=== PATIENT | female | born 1955 ===

== ENCOUNTER 2021-08-19 13:00 | Inpatient (IN) | payer OTHER ==
[~2021-08-19] VITALS: Ht 152.4 cm; Wt 65.8 kg
[2021-08-19] MEDS ORDERED: PROMETRIUM200 MG PO (15:37)
== END 2021-08-25 12:36 | disposition home or self-care (01) | DRG 734 ==
LOC: OB/GYN 08-21 09:23 → O/R 08-21 09:23 → SURH 08-21 13:00 → OB/GYN 08-21 23:21
PROVIDERS: ADMIT Specialist; ATTEND Specialist
PROC: 07TC0ZZ Resection of Pelvis Lymphatic, Open Approach (ICD-10-PCS; 2021-08-21)
PROC: 0UT90ZZ Resection of Uterus, Open Approach (ICD-10-PCS; 2021-08-21)
PROC: 0UT20ZZ Resection of Bilateral Ovaries, Open Approach (ICD-10-PCS; 2021-08-21)
PROC: 0UT70ZZ Resection of Bilateral Fallopian Tubes, Open Approach (ICD-10-PCS; 2021-08-21)
PROC: 0DTU0ZZ Resection of Omentum, Open Approach (ICD-10-PCS; 2021-08-21)
PROC: 3E1M38Z Irrigation of Peritoneal Cavity using Irrigating Substance, Percutaneous Approach (ICD-10-PCS; 2021-08-21)
PROC: 07TD0ZZ Resection of Aortic Lymphatic, Open Approach (ICD-10-PCS; principal; 2021-08-21 16:00)
DX: C54.1 Malignant neoplasm of endometrium (principal); C77.5 Secondary and unspecified malignant neoplasm of intrapelvic lymph nodes; Z20.822 Contact with and (suspected) exposure to COVID-19; N83.291 Other ovarian cyst, right side; N83.292 Other ovarian cyst, left side